=== PATIENT | female | born 1985 | race Caucasian/White ===

== ENCOUNTER 2020-07-16 15:52 | Emergency (ER) | payer SELFPAY ==
[~2020-07-16] VITALS: Ht 154.9 cm; Wt 65.8 kg
[2020-07-16] MEDS ORDERED: HYDROCODONE/APAP 7.5MG-325MG 1 EA TAB PO ONE (16:15)
== END 2020-07-16 17:49 | disposition home or self-care (01) ==
LOC: ER 16:10
DX: S62.617A Displaced fracture of proximal phalanx of left little finger, initial encounter for closed fracture (principal); M79.671 Pain in right foot; V53.5XXA Driver of pick-up truck or van injured in collision with car, pick-up truck or van in traffic accident, initial encounter; Y92.488 Other paved roadways as the place of occurrence of the external cause; F17.210 Nicotine dependence, cigarettes, uncomplicated
CPT/HCPCS: 99284